=== PATIENT | female | born 1970 | race Caucasian/White ===

== ENCOUNTER 2020-10-31 20:52 | Emergency (ER) | payer OTHER ==
[~2020-10-31 20:52] MED LIST: BACLOFEN 10MG T10 MG PO; CYMBALTA20 MG PO; LIDOCAINE PAIN1 EACH TOP; MELOXICAM15 MG PO; NORCO 5/3251 EACH PO; TIZANIDINE HCL4 MG PO; TRAMADOL HCL50 MG PO
== END 2020-11-01 01:30 | disposition home or self-care (01) ==
LOC: FER 20:52
DX: M25.561 Pain in right knee (principal); Z88.0 Allergy status to penicillin; Z88.2 Allergy status to sulfonamides
CPT/HCPCS: 73560